=== PATIENT | male | born 1975 | race Caucasian/White ===

== ENCOUNTER 2017-09-15 14:44 | Emergency (ER) | payer OTHER ==
[2017-09-15 15:41] VITALS: BP 138/91
--- NOTE | 2017-09-15 15:52 | RAD ---
INDICATION: LEFT wrist and hand pain and edema; struck during softball game. COMPARISON: No relevant prior exams available on the [facility] for comparison. TECHNIQUE: AP, lateral, and oblique views LEFT hand. AP, lateral, and oblique views LEFT hand REPORT: Nonarticular spiral fractures of the fourth and fifth metacarpals. 2 cortex widths lateral and dorsal displacement at the fifth metacarpal fracture and less displacement at the fourth. Negative for additional fracture or articular malalignment. Incidental note of heterogeneous sclerosis at the proximal pole of the scaphoid without collapse of the scaphoid which may reflect chronic avascular necrosis. 4 mm metallic foreign body at the volar aspect of the hand between the second and third metacarpals. Soft tissue swelling over the dorsal and ulnar aspect of the wrist and hand. IMPRESSION: 1. Nonarticular fractures of the fourth and fifth metacarpals. 2. 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 3. Metallic foreign body between the second and third metacarpal; correlate for previous penetrating traumatic injury.
--- NOTE | 2017-09-15 15:52 | RAD ---
INDICATION: LEFT wrist and hand pain and edema; struck during softball game. COMPARISON: No relevant prior exams available on the [facility] for [place]. TECHNIQUE: AP, lateral, and oblique views LEFT hand. AP, lateral, and oblique views LEFT hand REPORT: Nonarticular spiral fractures of the fourth and fifth metacarpals. 2 cortex widths lateral and dorsal displacement at the fifth metacarpal fracture and less displacement at the fourth. Negative for additional fracture or articular malalignment. Incidental note of heterogeneous sclerosis at the proximal pole of the scaphoid without collapse of the scaphoid which may reflect chronic avascular necrosis. 4 mm metallic foreign body at the volar aspect of the hand between the second and third metacarpals. Soft tissue swelling over the dorsal and ulnar aspect of the wrist and hand. IMPRESSION: 1. Nonarticular fractures of the fourth and fifth metacarpals. 2. 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 3. Metallic foreign body between the second and third metacarpal; correlate for previous penetrating traumatic injury.
[2017-09-15] MEDS ORDERED: HYDROcodone/ACETAMIN 5-325 MG* 1 TAB PO ONE (16:02)
--- NOTE | 2017-09-15 18:05 | ED ---
Adrián Perez Tiffany, scribed for Venkatesh Flores MD on 09/15/17 at 1551 . Upper Extremity Pain - HPI Summary HPI Summary: 42 y/o M presenting to [facility] complains of left wrist pain s/p bending his wrist backwards while sliding into home plate 6 days ago. Pt rates the pain 7/10 in severity. Symptoms aggravated by nothing. Symptoms alleviated by nothing. Pt reports left hand pain, left wrist and left hand swelling. - History of Current Complaint Chief Complaint: EDExtremityUpper Stated Complaint: LT WRIST INJURY Time Seen by Provider: 09/15/17 15:29 Hx Obtained From: Patient Mechanism Of Injury: Other Onset/Duration: Started Days Ago - 6, Still Present Timing: Constant Severity Currently: Moderate Pain Location: Other: - left wrist, left hand Aggravating Factor(s): Nothing Alleviating Factor(s): Nothing Associated Signs & Symptoms: Positive: Other - left hand pain, left wrist and left hand swelling. - Allergies/Home Medications Allergies/Adverse Reactions: Allergies Allergy/AdvReac Type Severity Reaction Status Date / Time No Known Allergies Allergy Verified 09/15/17 15:02 PMH/Surg Hx/FS Hx/Imm Hx Previously Healthy: No Endocrine/Hematology History: Denies: Hx Diabetes Respiratory History: Denies: Hx Asthma GI History: Reports: Hx Crohn's Disease - since 2001 Sensory History: Denies: Hx Deafness Opthamlomology History: Denies: Hx Legally Blind EENT History: Denies: Hx Deafness - Surgical History Surgery Procedure, Year, and Place: None - Immunization History Immunizations Up to Date: Yes Infectious Disease History: No Infectious Disease History: Denies: Traveled Outside the [place] in Last 30 Days - Family History Known Family History: Negative: Renal Disease - Social History Alcohol Use: None Hx Substance Use: No Substance Use Type: Reports: None Hx Tobacco Use: Yes Smoking Status (MU): Heavy Every Day Tobacco Smoker Review of Systems Negative: Fever Positive: Other - left wrist pain, left hand pain, left wrist and left hand swelling All Other Systems Reviewed And Are Negative: Yes Physical Exam - Summary Physical Exam Summary: Appearance: Well appearing, no pain distress Skin: warm, dry, reflects adequate perfusion Head/face: normal Eyes: EOMI, EVELYN ENT: normal Neck: supple, non-tender Respiratory: CTA, breath sounds present Cardiovascular: RRR, pulses symmetrical Abdomen: non-tender, soft Bowel Sounds: present Musculoskeletal: No foreign body by base of finger. No acute injury. Neuro: normal, sensory motor intact, A&Ox3 Triage Information Reviewed: Yes Vital Signs On Initial Exam: Initial Vitals Temp Pulse Resp BP Pulse Ox 98.4 F 82 16 147/90 95 09/15/17 14:59 09/15/17 14:59 09/15/17 14:59 09/15/17 14:59 09/15/17 14:59 Vital Signs Reviewed: Yes Procedures - Splinting Left Upper Extremity Location: left hand/wrist Hand-Made Type: orthoglass Splint: volar Pre-Proc Neuro Vasc Exam: normal Post-Proc Neuro Vasc Exam: normal Diagnostics - Vital Signs Vital Signs Temp Pulse Resp BP Pulse Ox 09/15/17 14:59 98.4 F 82 16 147/90 95 - Laboratory Lab Statement: Any lab studies that have been ordered have been reviewed, and results considered in the medical decision making process. - Radiology Hand Radiology Interpretation Completed By: Radiologist - Patient Name: PASTORA CANELA Medical Record#: [id number] Ordering Physician: Paul Rodriguez MD Acct.#: [id number] : 1975 Age: 42 Sex: M Location: EMERGENCY DEPARTMENT 1. Nonarticular fractures of the fourth and fifth metacarpals. 2. 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 3. Metallic foreign body between the second and third metacarpal; correlate for previous penetrating traumatic injury. ED physician has reviewed this report. Wrist Radiology Interpretation Completed By: Radiologist - 1. Nonarticular fractures of the fourth and fifth metacarpals. 2. 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 3. Metallic foreign body between the second and third metacarpal; correlate for previous penetrating traumatic injury. ED physician has reviewed this report. Course/Dx - Course Course Of Treatment: Patient with swelling to his dorsal hand. Some wrist tenderness. X-rays of the wrist are negative but he hand shows a spiral fractures of the fourth and fifth metacarpal. Placed in a volar splint. Discussed with orthopedics and the hand surgeon came and saw the patient. He is plans are outpatient follow-up on Wednesday. - Diagnoses Provider Diagnoses: Wrist pain, Closed fracture of metacarpal bone - Physician Notifications Discussed Care of Patient With: Jaspal Zuniga Time Discussed With Above Provider: 16:01 Instructed by Provider To: Other - Dr. Zuniga, orthopedics, agrees to evaluate pt in ED. Discharge - Sign-Out/Discharge Documenting (check all that apply): Discharge/Admit/Transfer - Discharge Plan Condition: Good Disposition: HOME Prescriptions: Naproxen [Naproxen 500 mg tab] 500 mg PO BID PRN #14 tablet.dr PRN Reason: Pain traMADol TAB* [Ultram*] 50 mg PO Q6HR PRN #12 tab MDD 4 PRN Reason: for more severe pain Patient Education Materials: Hand Fracture (ED), Wrist Sprain (ED) Forms: *Work Release Referrals: Session Florencio CARREON [Primary Care Provider] - Jaspal Zuniga MD [Medical Doctor] - Additional Instructions: Ice elevate wear the splint for comfort. Range of motion exercises as tolerated. Call today for follow-up with the orthopedic surgeon. - Billing Disposition and Condition Condition: GOOD Disposition: Home The documentation as recorded by the Adrián sanchez Tiffany accurately reflects the service I personally performed and the decisions made by , Venkatesh Flores MD.
== END 2017-09-15 16:28 | disposition home or self-care (01) ==
LOC: ED 14:44
DX: S62.305A Unspecified fracture of fourth metacarpal bone, left hand, initial encounter for closed fracture (principal); S62.307A Unspecified fracture of fifth metacarpal bone, left hand, initial encounter for closed fracture; M25.532 Pain in left wrist; X58.XXXA Exposure to other specified factors, initial encounter; Y93.64 Activity, baseball; Y92.39 Other specified sports and athletic area as the place of occurrence of the external cause; Y99.8 Other external cause status; F17.200 Nicotine dependence, unspecified, uncomplicated
CPT/HCPCS: 99282